=== PATIENT | female | born 1970 | race Caucasian/White ===

== ENCOUNTER 2025-04-04 14:26 | Emergency (ER) | payer BC ==
[~2025-04-04] VITALS: Ht 175.3 cm; Wt 68.0 kg
[2025-04-04 15:00] VITALS: O2SAT 93
[2025-04-04] MEDS ORDERED: ALBUTEROL FS 2.5 MG/3 ML VIAL.NEB ONE (15:05)
[2025-04-04] MEDS: IV NS 0.9% 1,000 ML IV ONE (15:08)
[2025-04-04 15:15] VITALS: O2SAT 93; O2SAT 97
[2025-04-04] MEDS: ALBUTEROL FS 2.5 MG/3 ML VIAL.NEB NEB ONE (15:35)
[2025-04-04] MEDS ORDERED: DEXT15LI PO (16:03)
[2025-04-04] MEDS ORDERED: BENZ-13 PO (16:03)
[2025-04-04 17:18] VITALS: BP 147/80; TEMP 98.6; O2SAT 96
== END 2025-04-04 16:12 | disposition home or self-care (01) ==
LOC: ER 14:31
DX: J06.9 Acute upper respiratory infection, unspecified (principal)
CPT/HCPCS: 99283; 96360; 71045; 94640; J7030